=== PATIENT | female | born 1975 | race Caucasian/White ===

== ENCOUNTER → 2016-12-07 | Day surgery (SDC) | payer OTHER, BC ==
[2016-11-21 15:32] VITALS: Ht 160 cm; Wt 90.9 kg
[~2016-12-07] VITALS: Ht 160 cm; Wt 90.9 kg
[~2016-12-07] MED LIST: ATROPINE SULFATE 0.1 MG/ML 5ML SYR IV PRN; BUPIVACAINE/EPINEPHRINE 0.25% 1:200,000 30 ML VIAL ONE; CEFAZOLIN 2000 MG/60 ML D5W IV SCH; DEXAMETHASONE SOD INJ 4 MG/ML VIAL ONE; EpHEDrine SULFATE INJ 50 MG/ML AMP IV PRN; EpINEphrine INJ 1MG/ML AMP 1 MG/ML AMP ONE; FENTANYL CITRATE INJ 50 MCG/1 ML 2 ML VIAL IV PRN; FENTANYL CITRATE INJ 50 MCG/1 ML 2 ML VIAL ONE; HYDROmorphone INJ 1 MG/ML SYR IV PRN; KETO10TA PO; LABETALOL HCL IV 5 MG/ML 20ML IV PRN; LACTATED RINGER'S 1000ML 1,000 ML IV SCH; LIDOCAINE HCL 1% MPF 2 ML VIAL ONE; LIDOCAINE HCL 2% 2 ML VIAL (20MG/ML) ONE; MEPERIDINE HCL 25 MG/ML CARP IV PRN; MIDAZOLAM HCL 1 MG/ML 2ML VIAL ONE; ONDANSETRON INJ 2 MG/ML 2 ML VIAL IV PRN; ONDANSETRON INJ 2 MG/ML 2 ML VIAL ONE; OXYC-57 PO; OXYCODONE/ACETAMINOPHEN 5-325 TAB PO PRN; PROPOFOL IV EMULSION 10 MG/ML 20 ML VIAL IV ONE; ROPI1TAB PO; ROPIVACAINE 0.5% 5 MG/ML 30 ML VIAL ONE; SODIUM CHLORIDE 0.9% 1000ML 1,000 ML IV SCH
--- NOTE | 2016-12-07 09:04 | History & Physical Bridge - [place] ---
H&P Re-Evaluation Bridge Note: I have examined the patient, reviewed the History & Physical and in the interval since the performance of the History & Physical I have noted the following changes of clinical significance: No changes noted
--- NOTE | 2016-12-07 10:51 | [facility] Post Operative Brief Note ---
Immediate Operative Summary Operative Date Dec 07, 2016. Pre-Operative Diagnosis Left Shoulder Dislocation of AC Joint Post-Operative Diagnosis same Procedure(s) Performed Left Shoulder Arthroscopy, Subacromial Decompression Surgeon Dr Serna Gang Supervisor Pipe Lines Surgeon(s) STONEY Alvarez Estimated Blood Loss trace Findings as above Specimens none Complication(s) None Disposition Recovery Room / PACU
--- NOTE | 2016-12-07 10:59 | Discharge Instructions-SurgCtr ---
Discharge Instructions Visit Reason for Visit: Left Shoulder Dislocation Of Ac Joint Discharge Discharge Diagnosis / Problem: SAME ABOVE Discharge Goals Goal(s): Decrease discomfort, Improve function Medications Stopped Medications Name(s): Requip. Last dose 12/05/16 Restart Stopped Medication(s): MAY RESTART 12/07/2016 Activity Recommendations Activity Limitations: as noted below Lifting Limitations: gradually increase as tolerated Exercise/Sports Limitations: gradually increase as tolerated Shower/Bathe: may shower/bathe in 3 days Driving or Machine Use: WHEN OUT OF THE SLING AND OFF OF NARCOTICS Anesthesia . Post Anesthesia Instructions: If you have had General Anesthesia or IV Sedation: * Do not drive today. * Resume driving when surgeon permits. * Do not make important decisions or sign legal documents today. * Call surgeon for: 1. Temperature elevations greater than 101 degrees F. 2. Uncontrollable pain. 3. Excessive bleeding. 4. Persistent nausea and vomiting. 5. Medication intolerance (nausea, vomiting or rash). * For nausea and vomiting use only clear liquids such as: tea, soda, bouillon until nausea subsides, then gradually increase diet as tolerated. * If you have any concerns or questions, call your surgeon's office. If physician is unavailable and it is an emergency, call 911 or go to the nearest emergency room. . Instructions / Follow-Up Instructions / Follow-Up MEDICATIONS: * Resume previous medications unless instructed otherwise by your surgeon. * Always take pain medication on a full stomach or with food to avoid upset stomach. * Do not drink alcohol or drive while taking narcotics. * Ibuprofen or Tylenol may be taken if narcotic not needed. SPECIAL CARE INSTRUCTIONS: __ None _X_ Keep extremity elevated and iced x 48 hours; apply ice 20-30 minutes 8-10 times/day. May remove at night. _X_ Sling (WEAR NEEDED FOR COMFORT) __24 hrs/day __ Remove at night __ Shoulder Immobilizer __ 24 hrs/day __ Remove at night _X_ Dressing __ Maintain until seen in office, may shower with plastic over site _X_ Remove dressings in 24-48 hours and then may shower _X_ Cover incisions with band-aids after showering __ Do not remove steri-strips Call physician if chills or temperature rises above 102 degrees or pain unrelieved by prescribed pain medications at . . Diet Recommendations Home Diet: no limitations Fluid Restriction: None Procedures Procedures Performed: Left Shoulder Arthroscopy, Subacromial Decompression Pending Studies Studies pending at discharge: no Work Instructions Return To Work: after follow-up Lifting Limitations: NO LIFTING WITH LEFT ARM Medical Emergencies . Who to Call and When: Medical Emergencies: If at any time you feel your situation is an emergency, please call 911 immediately. . Non-Emergent Contact Non-Emergency issues call your: Primary Care Provider Call Non-Emergent contact if: you have a fever, temperature is above 101.5 . . "Provider Documentation" section prepared by Charles Ng.
--- NOTE | 2016-12-07 11:31 | OPERATIVE REPORT ---
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 POSTOPERATIVE DIAGNOSIS: Same. PROCEDURE: Left shoulder diagnostic arthroscopy with limited debridement, distal clavicle resection, and acromioplasty. SURGEON: Dr. Juan José Serna. PRINCIPAL ARCHAEOLOGIST: Alessandro Ng PA-C, whose assistance was necessary for positioning the arm and help with instrumentation. ANESTHESIA: General with a left interscalene nerve block. COMPLICATIONS: None. CONDITION: Stable to PACU. INDICATIONS: Sarah is a pleasant 41-year-old female who works as a COLLECTION SUPERVISOR at [employer]. She injured her shoulder back on August 10. MRI and clinical examination were diagnostic for subacromial bursitis and AC joint arthritis. After failing extensive conservative treatment, she elected to undergo arthroscopy. OPERATION AND FINDINGS: PROCEDURE: On 12/07/2016, she arrived at [facility] for the above procedure. She was seen in the preoperative holding area and the operative extremity was identified and signed. She was given a preoperative antibiotic and a left interscalene nerve block. She was taken back to the operating room, laid on the table in supine position and put under general anesthesia. She was then put into the beachchair position. The left shoulder was prepped and draped in sterile fashion. A time-out was done and the patient and operative extremity was properly identified. A scope was introduced in the posterior portal. Diagnostic arthroscopy showed no cartilage damage to the humeral head or the glenoid. The biceps tendon was intact and went through a normal size biceps tommy mechanism. There were no superior labral tears. An anterior portal was made. A shaver was used to do a limited debridement of the intraarticular structures. The scope was then put into the subacromial space. A lateral portal was made and a shaver was used to do a complete subacromial and subdeltoid bursectomy of very red and inflamed bursitis. The coracoacromial ligament was teased off the undersurface of the acromion and a 5-0 carlton was used to complete an acromioplasty of a Bigliani type 2 acromion. A shaver was used to remove any excess debris. The bursal side of the rotator cuff was examined extensively without evidence of tear. Attention was turned to the distal clavicle. Through the anterior portal, a shaver and ablator were used to skeletonize the distal clavicle. A 5-0 carlton was then used to resect the distal 7 mm from the clavicle. Complete resection was checked under direct visualization. A shaver was used to remove any excess debris. No additional pathology was identified. Arthroscopic instruments were removed from the shoulder. Portal sites were closed with 3-0 nylon. She was then placed in a soft dressing and regular arm sling. She was then extubated, transferred to a litter and taken to the postanesthesia care unit in stable condition. She tolerated the procedure well. I attest to the content of the Intraoperative Record and any orders documented therein. Any exceptio ns are noted below.
[2016-12-07 11:40] VITALS: TEMP 36.4
[2016-12-07 12:03] VITALS: BP 133/82; PULSE 65; O2SAT 100
--- NOTE | 2016-12-07 12:13 | Anesthesia Progress Nt - [facility] ---
Anesthesia Post Op Note Date & Time Dec 07, 2016 at 12:13 Vital Signs Pain Intensity: 0 Vital Signs Past 12 Hours Date Time Temp Pulse Resp B/P Pulse Ox O2 Delivery O2 Flow Rate FiO2 12/07/16 12:03 65 16 133/82 100 Room Air 12/07/16 11:40 36.4 62 16 138/82 100 Room Air 12/07/16 11:32 36.5 12/07/16 11:30 138/88 12/07/16 11:28 66 21 95 12/07/16 11:28 65 21 12/07/16 11:25 128/86 12/07/16 11:23 57 15 95 12/07/16 11:23 57 15 12/07/16 11:22 Room Air 12/07/16 10:55 36.4 66 16 117/79 100 Diffusion Mask 6 12/07/16 09:55 101/65 12/07/16 09:51 68 14 99 12/07/16 09:51 69 12/07/16 09:50 66 14 124/78 100 12/07/16 09:50 67 12/07/16 09:49 128/77 12/07/16 09:45 67 0 99 12/07/16 09:45 68 12/07/16 09:40 70 12/07/16 09:40 69 0 97 12/07/16 09:35 69 12/07/16 09:35 69 0 97 12/07/16 09:14 36.8 84 18 154/91 97 Room Air Notes Mental Status: alert / awake / arousable, participated in evaluation Pt Amnestic to Procedure: Yes Nausea / Vomiting: adequately controlled Pain: adequately controlled Airway Patency, RR, SpO2: stable & adequate BP & HR: stable & adequate Hydration State: stable & adequate Anesthetic Complications: no major complications apparent
== END | disposition home or self-care (01) ==
LOC: X.SURG 09:05
PROVIDERS: ATTEND Orthopaedic Surgery
DX: M75.42 Impingement syndrome of left shoulder (principal); M19.012 Primary osteoarthritis, left shoulder; G25.81 Restless legs syndrome

== ENCOUNTER 2020-07-01 19:59 | Observation (INO) ==
[2020-07-01] MEDS ORDERED: SODIUM CHLORIDE 0.9% 1000ML 1,000 ML IV ONE (20:30)
[2020-07-01] MEDS ORDERED: ASPIRIN CHEW 324 MG PO STA (20:36)
[2020-07-01] MEDS ORDERED: NITROGLYCERIN SL 0.4 MG/TAB TAB SL STA (20:36)
[2020-07-01] MEDS ORDERED: SODIUM CHLORIDE 0.9% 500 ML IV ONE (20:42)
[2020-07-01 21:05] LABS: Basophils # (auto) 0.05 K/uL (0-0.2); Basophils % (auto) 0.4 %; Eosinophils # (auto) 0.28 K/uL (0-0.5); Eosinophils % (auto) 2.4 %; Hematocrit (blood only) 42.2 % (37-47); Hemoglobin 14.2 g/dL (12.0-16.0); Immature Granulocytes # (auto) 0.02 K/uL (0.00-0.02); Immature Granulocytes % (auto) 0.2 %; Lymphocytes # (auto) 4.07 K/uL (1.2-3.4); Lymphocytes % (auto) 35.5 %; Mean Corpuscular Hemoglobin 31.9 pg (25-34); Mean Corpuscular Hgb Conc 33.6 g/dL (32-36); Mean Corpuscular Volume 94.8 fL (80-100); Mean Platelet Volume 11.4 fL (7.4-10.4); Monocytes # (auto) 0.77 K/uL (0.11-0.59); Monocytes % (auto) 6.7 %; Neutrophils # (auto) 6.27 K/uL (1.4-6.5); Neutrophils % (auto) 54.8 %; Platelet Count 284 K/uL (130-400); RDW Standard Deviation 45.1 fL (36.4-46.3); Red Blood Count 4.45 M/uL (4.2-5.4); White Blood Count 11.46 K/uL (4.8-10.8)
[2020-07-01 21:17] LABS: Partial Thromboplastin Ratio 0.9; Prothrombin Time 10.2 Seconds (9.0-12.0)
[2020-07-01 21:23] LABS: Pregnancy Test, Serum Negative (Negative)
[2020-07-01 21:24] LABS: Alanine Aminotransferase 62 U/L (12-78); Albumin Level 3.6 gm/dl (3.4-5.0); Aspartate Aminotransferase 26 U/L (15-37); BUN Creatinine Ratio 10.2 (10-20); Bilirubin Direct < 0.1 mg/dl (0-0.2); Blood Urea Nitrogen 9 mg/dl (7-18); Calcium 9.3 mg/dl (8.5-10.1); Carbon Dioxide 28 mmol/L (21-32); Chloride 105 mmol/L (98-107); Creatinine Clr Calc Pharmacy 94.4 ml/min; Est GFR (Non-African American) 79.4; Glucose 86 mg/dl (70-99); Lipase 86 U/L (73-393); Magnesium 2.1 mg/dl (1.8-2.4); Potassium 3.6 mmol/L (3.5-5.1); Sodium 139 mmol/L (136-145)
[2020-07-01 21:33] LABS: Albumin Globulin Ratio 0.9 (0.9-2); Alkaline Phosphatase 73 U/L (45-117); Bilirubin,Total 0.2 mg/dl (0.2-1); Globulin 3.9 gm/dl (2.5-4.0); NT Pro B Type Natriuretic Pept 15 pg/ml (0-450); Phosphorus 2.5 mg/dl (2.5-4.9); Total Protein 7.5 gm/dl (6.4-8.2); Troponin I < 0.015 ng/ml (0-0.045)
[2020-07-01] MEDS ORDERED: OPTIRAY 320 125ml IV ONE (22:16)
--- NOTE | 2020-07-01 23:15 | Emergency Department Note ---
Impression & Plan Exertional chest pain, Dizziness, Elevated blood pressure reading without diagnosis of hypertension ED Provider Note NAME: ANNE GILLIAM AGE: 45 SEX: F ARRIVES VIA: Walk-In INFORMANT: Patient, ED PROVIDER(S): Tariq Sargent MD CHIEF COMPLAINT: Chest pain, dizziness PLAN: Disposition: Admit MEDICAL DECISION MAKING: The patient is a pleasant 45-year-old woman with a past medical history of anxiety and restless leg syndrome who presents emergency department with complaints of intermittent chest pain with exertion that is been ongoing for the past week with associated lightheadedness and nausea and intermittent episodes that occur with rest. She reports her most recent episode was today which began around 4 PM and has been somewhat constant. She admits to eating prior to the onset of symptoms but reports other times is unrelated to eating. She reports she is aware that her father has a heart condition that they were told was "genetic". She denies any recent fevers, chills, cough, congestion, diarrhea, urinary symptoms. On arrival patient is anxious appearing but no acute distress, afebrile stable vital signs. She appears clinically dry. Exam is otherwise unremarkable. EKG without overt acute ischemia. Chest x-ray negative for acute process per my review. WBC 11.4, nonspecific. H/H and platelets within normal limits. Chemistry without acidosis. Electrolytes LFTs unremarkable. Troponin negative/undetectable. BNP within normal limits. CT of the chest was negative for PE, infiltrates or acute aortic pathology per preliminary stat read report. Upon reevaluation the patient did report resolution of symptoms after aspirin and nitroglycerin. Given this and in the setting of the patient's report of exertional symptoms with her reported family history reasonable to admit the patient for further cardiac evaluation. Heart score 4, moderate risk. Patient and are agreeable with this plan. Case was discussed with Dr. Ibarra, [facility] hospitalist, who will evaluate the patient for admission. Triage Nursing notes reviewed and agree them. Prior medical records reviewed Vital Signs: reviewed and remarkable for no significant abnormalities Differential diagnosis: Cardiac ischemia, aortic dissection, pulmonary embolism, pneumothorax, pneumonia, pericarditis, myocarditis, esophageal rupture, GERD, cholecystitis, pancreatitis, musculoskeletal, as well as other pathologies. ER treatment provided: See below. Diagnostics interpreted by me: ECG: Normal sinus rhythm, 62 bpm, no ectopy, no overt ST elevation or depression, QTC 424, QRS 84. Cardiac Monitoring: An order for continuous cardiac monitoring was placed and demonstrated normal sinus rhythm, 62 bpm, no ectopy. Laboratory studies: See below Imaging studies: CXR: Negative for acute cardiopulmonary process per my preliminary review. Preliminary Findings Only See Final Report For Complete Findings CTA CHEST: No pulmonary embolus. No effusion or consolidation. Radiologist: Nell Moe M.D. Study ready at 22:29 and initial results transmitted at 22:42 Consultation(s): Case was discussed with Dr. Ibarra, [facility] hospitalist, who will evaluate the patient for admission. HPI: The patient is a pleasant 45-year-old woman with a past medical history of anxiety and restless leg syndrome who presents emergency department with complaints of intermittent chest pain with exertion that is been ongoing for the past week with associated lightheadedness and nausea and intermittent episodes that occur with rest. She reports her most recent episode was today which began around 4 PM and has been somewhat constant. She admits to eating prior to the onset of symptoms but reports other times is unrelated to eating. She reports she is aware that her father has a heart condition that they were told was "genetic". She denies any recent fevers, chills, cough, congestion, diarrhea, urinary symptoms. ROS: See above HPI for pertinent positives & negatives. A total of 10 systems reviewed and were otherwise negative. PAST MEDICAL HISTORY:See Below PAST SURGICAL HISTORY:See Below FAMILY HISTORY:See Below SOCIAL HISTORY:See Below HOME MEDICATIONS:See Below ALLERGIES:See Below VITALS:See Below PHYSICAL EXAMINATION: GENERAL: Awake, alert, fatigued-appearing, in no distress HENT: Normocephalic, atraumatic. Oropharynx with dry mucous membranes and otherwise unremarkable. EYES: Normal conjunctiva. Sclera non-icteric. NECK: Supple. No nuchal rigidity. FROM. No JVD. RESPIRATORY: Clear to auscultation. CARDIAC: Regular rate, normal rhythm. Extremities warm and well perfused. Pulses equal. ABDOMEN: Soft, non-distended. No tenderness to palpation. No rebound or guarding. No masses. RECTAL: Deferred. MUSCULOSKELETAL: Chest examination reveals no tenderness. The back is symmetrical on inspection without obvious abnormality. There is no CVA tenderness to palpation. No joint edema. LOWER EXTREMITIES: Calves are equal size bilaterally and non-tender. No edema. No discoloration. NEURO: Normal sensorium. No sensory or motor deficits noted. SKIN: No rash or jaundice noted. Tariq Sargent MD Past Med/Surg History Medical History Anxiety Otitis media of both ears Restless leg syndrome Family History Other No pertinent family history Social History Smoking Status: Former smoker Tobacco Type: Cigarettes Smoking End Date: May 2020; Hx Alcohol Use: No Hx Substance Use: No Preferred Language: Tamazight Communication Ability: Effective Beliefs That Will Affect Care: None marital status: Current Living Situation: Spouse current occupational status: employed Other Information That Helps Us Care for You: No Feels Safe at Home: Yes Safety Concerns: Feels Safe At This Time Assistive Devices: Glasses Allergies Allergies Allergy/AdvReac Type Severity Reaction Status Date / Time No Known Allergies Allergy Unknown Verified 07/01/20 21:50 Home Meds Home Medications Medication Instructions Recorded Confirmed citalopram [Celexa] 40 mg PO QAM 07/06/18 07/01/20 pramipexole [Mirapex] 0.125 mg PO HS 07/06/18 07/01/20 Results & Data (ED) Vital Signs Vital Signs - 24 hr 07/01/20 20:00 07/01/20 20:02 07/01/20 20:55 Temperature 36.9 C Temperature Source Oral Pulse Rate 72 Respiratory Rate 16 Respiratory Effort / Characteristics Non-Labored Spontaneous Respiratory Depth Normal Blood Pressure 157/82 H Blood Pressure [Right Arm] Blood Pressure Mean 107 Blood Pressure Mean [Right Arm] Pulse Oximetry 95 97 Oxygen Delivery Method Room Air Room Air Room Air Sepsis Recent Fever Within 48 Hours No Sepsis New/Unexplained Change in Mental Status No Sepsis Action Taken by Nursing No Action Required 07/01/20 22:00 07/02/20 00:00 Temperature Temperature Source Pulse Rate Respiratory Rate Respiratory Effort / Characteristics Respiratory Depth Blood Pressure Blood Pressure [Right Arm] 165/114 H 156/89 H Blood Pressure Mean Blood Pressure Mean [Right Arm] 131 111 Pulse Oximetry Oxygen Delivery Method Sepsis Recent Fever Within 48 Hours Sepsis New/Unexplained Change in Mental Status Sepsis Action Taken by Nursing Laboratory Data Attestation: I reviewed the patient's lab results. Result diagrams: 07/01/20 20:30 07/01/20 20:30 Lab Results 07/01/20 07/01/20 07/01/20 Range/Units 20:30 20:30 20:30 WBC 11.46 H (4.8-10.8) K/uL RBC 4.45 (4.2-5.4) M/uL Hgb 14.2 (12.0-16.0) g/dL Hct 42.2 (37-47) % MCV 94.8 (80-100) fL MCH 31.9 (25-34) pg MCHC 33.6 (32-36) g/dL RDW Std Deviation 45.1 (36.4-46.3) fL RDW Coeff of Josefina 13.0 (11.5-14.5) % Plt Count 284 (130-400) K/uL MPV 11.4 H (7.4-10.4) fL Immature Gran % (Auto) 0.2 % Neut % (Auto) 54.8 % Lymph % (Auto) 35.5 % Dougherty % (Auto) 6.7 % Eos % (Auto) 2.4 % Baso % (Auto) 0.4 % Neut # (Auto) 6.27 (1.4-6.5) K/uL Lymph # (Auto) 4.07 H (1.2-3.4) K/uL Dougherty # (Auto) 0.77 H (0.11-0.59) K/uL Eos # (Auto) 0.28 (0-0.5) K/uL Baso # (Auto) 0.05 (0-0.2) K/uL Immature Gran # (Auto) 0.02 (0.00-0.02) K/uL PT 10.2 (9.0-12.0) Seconds INR 1.0 (0.9-1.1) APTT 24.0 (21.0-31.0) Seconds PTT Ratio 0.9 Sodium 139 (136-145) mmol/L Potassium 3.6 (3.5-5.1) mmol/L Chloride 105 (98-107) mmol/L Carbon Dioxide 28 (21-32) mmol/L Anion Gap 5.0 (3-11) BUN 9 (7-18) mg/dl Creatinine 0.89 (0.6-1.2) mg/dl Est Cr Clr Drug Dosing 94.4 ml/min Est GFR ( Amer) 92.0 Est GFR (Non-Af Amer) 79.4 BUN/Creatinine Ratio 10.2 (10-20) Glucose 86 (70-99) mg/dl Calcium 9.3 (8.5-10.1) mg/dl Phosphorus 2.5 (2.5-4.9) mg/dl Magnesium 2.1 (1.8-2.4) mg/dl Total Bilirubin 0.2 (0.2-1) mg/dl Direct Bilirubin < 0.1 (0-0.2) mg/dl AST 26 (15-37) U/L ALT 62 (12-78) U/L Alkaline Phosphatase 73 (45-117) U/L Troponin I < 0.015 (0-0.045) ng/ml NT-Pro-B Natriuret Pep 15 (0-450) pg/ml Total Protein 7.5 (6.4-8.2) gm/dl Albumin 3.6 (3.4-5.0) gm/dl Globulin 3.9 (2.5-4.0) gm/dl Albumin/Globulin Ratio 0.9 (0.9-2) Lipase 86 (73-393) U/L TSH 2.100 (0.300-4.500) uIu/ml HCG, Qual (Negative) 07/01/20 Range/Units 20:30 WBC (4.8-10.8) K/uL RBC (4.2-5.4) M/uL Hgb (12.0-16.0) g/dL Hct (37-47) % MCV (80-100) fL MCH (25-34) pg MCHC (32-36) g/dL RDW Std Deviation (36.4-46.3) fL RDW Coeff of Josefina (11.5-14.5) % Plt Count (130-400) K/uL MPV (7.4-10.4) fL Immature Gran % (Auto) % Neut % (Auto) % Lymph % (Auto) % Dougherty % (Auto) % Eos % (Auto) % Baso % (Auto) % Neut # (Auto) (1.4-6.5) K/uL Lymph # (Auto) (1.2-3.4) K/uL Dougherty # (Auto) (0.11-0.59) K/uL Eos # (Auto) (0-0.5) K/uL Baso # (Auto) (0-0.2) K/uL Immature Gran # (Auto) (0.00-0.02) K/uL PT (9.0-12.0) Seconds INR (0.9-1.1) APTT (21.0-31.0) Seconds PTT Ratio Sodium (136-145) mmol/L Potassium (3.5-5.1) mmol/L Chloride (98-107) mmol/L Carbon Dioxide (21-32) mmol/L Anion Gap (3-11) BUN (7-18) mg/dl Creatinine (0.6-1.2) mg/dl Est Cr Clr Drug Dosing ml/min Est GFR ( Amer) Est GFR (Non-Af Amer) BUN/Creatinine Ratio (10-20) Glucose (70-99) mg/dl Calcium (8.5-10.1) mg/dl Phosphorus (2.5-4.9) mg/dl Magnesium (1.8-2.4) mg/dl Total Bilirubin (0.2-1) mg/dl Direct Bilirubin (0-0.2) mg/dl AST (15-37) U/L ALT (12-78) U/L Alkaline Phosphatase (45-117) U/L Troponin I (0-0.045) ng/ml NT-Pro-B Natriuret Pep (0-450) pg/ml Total Protein (6.4-8.2) gm/dl Albumin (3.4-5.0) gm/dl Globulin (2.5-4.0) gm/dl Albumin/Globulin Ratio (0.9-2) Lipase (73-393) U/L TSH (0.300-4.500) uIu/ml HCG, Qual Negative (Negative) Administered Medications Discontinued Medications Aspirin (Aspirin Chew 324 Mg) 324 mg PO NOW STA Stop: 07/01/20 20:37 Last Admin: 07/01/20 21:02 Dose: 324 mg Documented by: [id number] Sodium Chloride (Nss 1000ml) 1,000 mls @ 999 mls/hr IV .Q1H1M ONE Stop: 07/01/20 21:30 Last Infusion: 07/01/20 22:00 Dose: 0 mls/hr Documented by: [id number] Admin: 07/01/20 20:56 Dose: 999 mls/hr Documented by: [id number] Sodium Chloride (Nss) 500 mls @ 999 mls/hr IV .Q31M ONE Stop: 07/01/20 21:12 Last Infusion: 07/01/20 21:40 Dose: 0 mls/hr Documented by: [id number] Admin: 07/01/20 21:03 Dose: 999 mls/hr Documented by: [id number] Ioversol (Optiray 320 125ml) 102 ml IV ONCE ONE Stop: 07/01/20 22:17 Last Admin: 07/01/20 22:16 Dose: 102 ml Documented by: [id number] Nitroglycerin (Nitroglycerin Sl 0.4 Mg/Tab Tab) 0.4 mg SL NOW STA Stop: 07/01/20 20:37 Last Admin: 07/01/20 21:02 Dose: 0.4 mg Documented by: [id number] Blood Pressure Blood Pressure Findings: Elevated blood pressure Blood Pressure Disposition: further management by hospitalist Discharge Plan Visit Data Chief Complaint: Chest Pain Stated Complaint: CHEST PAIN,LIGHTHEAD,SOB ED Provider: Tariq Sargent Discharge Problem: Exertional chest pain, Dizziness, Elevated blood pressure reading without diagnosis of hypertension Patient Disposition: Admitted As Inpatient Discharge Instructions Interventions: ED Discharge Assessment Last Done: 07/02/20 01:30
--- NOTE | 2020-07-02 00:06 | History & Physical Report ---
Date of Service July 02, 2020 Assessment & Plan (1) Chest pain: Relieved by nitroglycerin Rule out ACS Hypertension possible chronic BP elevation given LVH on outpatient TTE 2016 (outpatient work- up given family history of HOCM) Snoring with apneic episodes as per account Possible sleep disordered breathing Past tobacco abuse OBS PCU Aspirin for CAD prevention until ACS ruled out Follow troponin Cardiology consult RE chest pain Outpatient sleep study DVT prophylaxis. Lovenox subcu Full code Patient's requesting updates providers. Mr. Jose Mathur, contact #[phone]. Text document was generated using [employer] voice recognition software. It may contain grammatical or spelling errors. Kindly contact undersigned for clarification of any documentation item in question. History of Present Illness Chief Complaint: Chest pain Primary Care Provider: Dr. Goldman History obtained from patient, family, and records. Medical history significant for anxiety/mood disorder, past tobacco abuse. One week history of intermittent substernal achy chest discomfort with radiation to the back associated with lightheadedness, nausea, sensation that she is about to pass out. Symptoms somewhat worse with exertion. No cough symptoms. No headache symptoms. SBP 140s at home which is higher than usual. Some personal stressors. Chest discomfort relieved with aspirin and nitroglycerin administration by EMS. Medical History as above Surgical History : Shoulder surgery, endometrial ablation Family History : HOCM, CAD, diabetes, Personal/Social history : Past tobacco abuse, occasional alcohol intake, restaurant employee Allergies Allergy/AdvReac Type Severity Reaction Status Date / Time No Known Allergies Allergy Unknown Verified 07/01/20 21:50 Home Medications Home Medications Medication Instructions Recorded Confirmed Type citalopram [Celexa] 40 mg PO QAM 07/06/18 07/01/20 History pramipexole [Mirapex] 0.125 mg PO HS 07/06/18 07/01/20 History Past Med/Surg History Medical History Anxiety Otitis media of both ears Restless leg syndrome Family History Other No pertinent family history Social History Smoking Status: Former smoker Tobacco Type: Cigarettes Smoking End Date: May 2020; Hx Alcohol Use: No Hx Substance Use: No Preferred Language: Guamanian Communication Ability: Effective Beliefs That Will Affect Care: None marital status: Current Living Situation: Spouse current occupational status: employed Other Information That Helps Us Care for You: No Feels Safe at Home: Yes Safety Concerns: Feels Safe At This Time Assistive Devices: Glasses Review of Systems Review of Systems: As per HPI, all 10 systems reviewed, snoring during sleep with apneic episodes as per account, all other ROS negative Physical Exam Physical Exam: GENERAL: Comfortable, slightly anxious, pleasant, morbidly obese, no respiratory distress SKIN: Normal color, warm HEENT: Bespectacled, pink palpebral conjunctivae, no ptosis, moist buccal mucosa NECK : Supple, no tenderness CHEST : CTA, no tenderness HEART : RRR, systolic murmur ABDOMEN: Some distention, nontender EXTREMITIES : No LE swelling/tenderness, no other conspicuous deformities noted NEUROLOGIC : Coherent, no facial asymmetry, no other gross focality Results & Data Results & Data ([facility]) Vital Signs (Past 12 Hours) Vital Signs Temp Pulse Resp BP BP Pulse Ox 07/01/20 22:00 165/114 H 07/01/20 20:55 97 07/01/20 20:02 36.9 C 72 16 157/82 H 95 Laboratory Results Laboratory Results WBC 11.46 K/uL (4.8-10.8) H 07/01/20 20:30 RBC 4.45 M/uL (4.2-5.4) 07/01/20 20:30 Hgb 14.2 g/dL (12.0-16.0) 07/01/20 20:30 Hct 42.2 % (37-47) 07/01/20 20:30 MCV 94.8 fL (80-100) 07/01/20 20:30 MCH 31.9 pg (25-34) 07/01/20 20:30 MCHC 33.6 g/dL (32-36) 07/01/20 20:30 RDW Std Deviation 45.1 fL (36.4-46.3) 07/01/20 20:30 RDW Coeff of Josefina 13.0 % (11.5-14.5) 07/01/20 20:30 Plt Count 284 K/uL (130-400) 07/01/20 20:30 MPV 11.4 fL (7.4-10.4) H 07/01/20 20:30 Immature Gran % (Auto) 0.2 % 07/01/20 20:30 Neut % (Auto) 54.8 % 07/01/20 20:30 Lymph % (Auto) 35.5 % 07/01/20 20:30 Bladen % (Auto) 6.7 % 07/01/20 20:30 Eos % (Auto) 2.4 % 07/01/20 20:30 Baso % (Auto) 0.4 % 07/01/20 20:30 Neut # (Auto) 6.27 K/uL (1.4-6.5) 07/01/20 20:30 Lymph # (Auto) 4.07 K/uL (1.2-3.4) H 07/01/20 20:30 Bladen # (Auto) 0.77 K/uL (0.11-0.59) H 07/01/20 20:30 Eos # (Auto) 0.28 K/uL (0-0.5) 07/01/20 20:30 Baso # (Auto) 0.05 K/uL (0-0.2) 07/01/20 20:30 Immature Gran # (Auto) 0.02 K/uL (0.00-0.02) 07/01/20 20:30 PT 10.2 Seconds (9.0-12.0) 07/01/20 20:30 INR 1.0 (0.9-1.1) 07/01/20 20:30 APTT 24.0 Seconds (21.0-31.0) 07/01/20 20:30 PTT Ratio 0.9 07/01/20 20:30 Sodium 139 mmol/L (136-145) 07/01/20 20:30 Potassium 3.6 mmol/L (3.5-5.1) 07/01/20 20:30 Chloride 105 mmol/L (98-107) 07/01/20 20:30 Carbon Dioxide 28 mmol/L (21-32) 07/01/20 20:30 Anion Gap 5.0 (3-11) 07/01/20 20:30 BUN 9 mg/dl (7-18) 07/01/20 20:30 Creatinine 0.89 mg/dl (0.6-1.2) 07/01/20 20:30 Est Cr Clr Drug Dosing 94.4 ml/min 07/01/20 20:30 Est GFR ( Amer) 92.0 07/01/20 20:30 Est GFR (Non-Af Amer) 79.4 07/01/20 20:30 BUN/Creatinine Ratio 10.2 (10-20) 07/01/20 20:30 Glucose 86 mg/dl (70-99) 07/01/20 20: Calcium 9.3 mg/dl (8.5-10.1) 07/01/20 20:30 Phosphorus 2.5 mg/dl (2.5-4.9) 07/01/20: Magnesium 2.1 mg/dl (1.8-2.4) 07/01/20 20:30 Total Bilirubin 0.2 mg/dl (0.2-1) 07/01/20 20:30 Direct Bilirubin < 0.1 mg/dl (0-0.2) 07/01/20 20:30 AST 26 U/L (15-37) 07/01/20 20:30 ALT 62 U/L (12-78) 07/01/20 20:30 Alkaline Phosphatase 73 U/L (45-117) 07/01/20 20:30 Troponin I < 0.015 ng/ml (0-0.045) 07/01/20 20: NT-Pro-B Natriuret Pep 15 pg/ml (0-450) 07/01/20 20:30 Total Protein 7.5 gm/dl (6.4-8.2) 07/01/20 20:30 Albumin 3.6 gm/dl (3.4-5.0) 07/01/20 20:30 Globulin 3.9 gm/dl (2.5-4.0) 07/01/20 20 Albumin/Globulin Ratio 0.9 (0.9-2) 07/01/20: Lipase 86 U/L (73-393) 07/01/20 20: TSH 2.100 uIu/ml (0.300-4.500) 07/01/20 20:30 HCG, Qual Negative (Negative) 07/01/20 20:[address] chest initial read: No pulmonary embolus. No effusion or consolidation. EKG as per my interpretation : Rate 60, NSR, normal axis, T wave abnormality septal leads
[2020-07-02] MEDS ORDERED: PROMETHAZINE HCL 12.5 MG in SODIUM CHLORIDE 0.9% 50 ML IV PRN (01:59)
[2020-07-02] MEDS ORDERED: TRAMADOL HCL 50 MG TABLET PO PRN (01:59)
[2020-07-02] MEDS ORDERED: LORazepam 0.5 MG/1 ML VIAL IV PRN (01:59)
[2020-07-02] MEDS ORDERED: ACETAMINOPHEN 325 MG TAB PO PRN (01:59)
[2020-07-02] MEDS ORDERED: NITROGLYCERIN SL 0.4 MG/TAB TAB SL PRN (01:59)
[2020-07-02] MEDS ORDERED: MoRPHine SULFATE 4 MG/ML 1 ML CARP\\VIAL IV PRN (01:59)
[2020-07-02] MEDS ORDERED: D5NSS + 20MEQ KCL 20 MEQ/1,000 ML BAG IV SCH (02:30)
[2020-07-02 05:10] LABS: Basophils # (auto) 0.05 K/uL (0-0.2); Basophils % (auto) 0.5 %; Eosinophils # (auto) 0.27 K/uL (0-0.5); Eosinophils % (auto) 2.5 %; Hematocrit (blood only) 40.5 % (37-47); Hemoglobin 13.2 g/dL (12.0-16.0); Immature Granulocytes # (auto) 0.04 K/uL (0.00-0.02); Immature Granulocytes % (auto) 0.4 %; Lymphocytes # (auto) 3.73 K/uL (1.2-3.4); Lymphocytes % (auto) 34.3 %; Mean Corpuscular Hemoglobin 30.9 pg (25-34); Mean Corpuscular Hgb Conc 32.6 g/dL (32-36); Mean Corpuscular Volume 94.8 fL (80-100); Mean Platelet Volume 11.5 fL (7.4-10.4); Monocytes # (auto) 0.64 K/uL (0.11-0.59); Monocytes % (auto) 5.9 %; Neutrophils # (auto) 6.13 K/uL (1.4-6.5); Neutrophils % (auto) 56.4 %; Platelet Count 249 K/uL (130-400); RDW Standard Deviation 45.1 fL (36.4-46.3); Red Blood Count 4.27 M/uL (4.2-5.4); White Blood Count 10.86 K/uL (4.8-10.8)
[2020-07-02 05:27] LABS: BUN Creatinine Ratio 10.4 (10-20); Blood Urea Nitrogen 8 mg/dl (7-18); Calcium 8.1 mg/dl (8.5-10.1); Carbon Dioxide 26 mmol/L (21-32); Chloride 110 mmol/L (98-107); Creatinine Clr Calc Pharmacy 108.3 ml/min; Est GFR (African American) 107.9; Est GFR (Non-African American) 93.1; Glucose 93 mg/dl (70-99); Potassium 3.7 mmol/L (3.5-5.1); Sodium 140 mmol/L (136-145)
[2020-07-02 05:32] LABS: Chol HDL Ratio 5; Cholesterol 192 mg/dl (0-200); HDL Cholesterol 38 mg/dl; LDL Cholesterol Calculated 132 mg/dl; Triglycerides 109 mg/dl (0-150); Troponin I < 0.015 ng/ml (0-0.045); VLDL Cholesterol 22 mg/dl
--- NOTE | 2020-07-02 07:31 | XRay Report ---
XR chest 1V portable HISTORY: Atypical Chest Pain COMPARISON: Chest 06/27/2019. FINDINGS: The lungs are clear. Cardiac silhouette is normal in size. No pleural effusions. No pneumot horax. IMPRESSION: No acute process. ACT 112: Negative or not required by law. Electronically signed by: Khadar Ross M.D. 07/02/2020 7:29 AM
--- NOTE | 2020-07-02 07:34 | CT Scan Report ---
CHEST CTA for PULMONARY ARTERIES CT DOSE: 787.98 mGy.cm HISTORY: Atypical chest pain. Assess for pulmonary embolus. TECHNIQUE: Multiaxial CT images of the chest were performed following the intravenous administration of contrast to evaluate the pulmonary arteries. Maximal intensity projection images were also obtaine d. A dose lowering technique was utilized adhering to the principles of ALARA. COMPARISON STUDY: None. FINDINGS: Normal caliber thoracic aorta with no evidence for dissection. The heart is normal in size. No pleural or pericardial effusions. No filling defects within the pulmonary arteries to suggest pul monary embolus. No mediastinal hilar lymphadenopathy. Normal esophagus. Limited views of the upper ab domen demonstrate a normal liver and spleen. No suspicious lytic or blastic osseous lesions. The cent ral airways are patent. No pneumothorax. The lungs are essentially clear. No focal lung consolidation s to suggest pneumonia. IMPRESSION: No evidence for pulmonary embolus. ACT 112: Negative or not required by law. Electronically signed by: Khadar Ross M.D. 07/02/2020 7:33 AM
[2020-07-02] MEDS ORDERED: CITALOPRAM 40 MG TAB PO SCH (09:00)
[2020-07-02] MEDS ORDERED: ASPIRIN 81 MG ECTAB PO SCH (09:00)
[2020-07-02] MEDS ORDERED: ENOXAPARIN INJ 40 MG/0.4 ML SYR SQ SCH (09:00)
--- NOTE | 2020-07-02 10:11 | Cardiology Consultation ---
Date of Consultation July 02, 2020 Assessment & Plan (1) Chest pain: Pain was reproducible with palpation but she does have concerning family history of cardiac disease. Troponin negative. Exercise stress test completed and nonischemic. Will refer to chiropractics as an outpatient for rib dysfunction. Present on Admission?: Yes (2) Elevated blood pressure reading without diagnosis of hypertension: Past medical history of elevated blood pressure. Noted to have blood pressures 130-160/70-100 range during this admission. Will start the patient on 25 mg Losartan and have the patient follow up with me in the cardiology office in 1 month. Present on Admission?: Yes (3) Diastolic dysfunction: Blood pressure control as above. (4) Aortic valve sclerosis: Would benefit from statin therapy to prevent disease progression will likely start at outpatient follow up History of Present Illness Attending Physician: Ace Houser MD History of Present Illness 45 year old female with past medical history of restless leg and elevated blood pressure seen in consultation today for chest pain that has been going on for 1 week. She reports that this has occurred twice prior to admission and is associated with "dizziness". The chest pain occurs in her mid sternum and is described as "stabbing and sharp" radiating through her back. The pain does feel better if she stretches out her back and reported that it feels like her back needs "cracked". She previously had and ECHO in 2016 for a family history of hypertrophic cardiomyopathy in her father and grandfather. Allergies Allergy/AdvReac Type Severity Reaction Status Date / Time No Known Allergies Allergy Unknown Verified 07/01/20 21:50 Home Medications Home Medications Medication Instructions Recorded Confirmed Type citalopram [Celexa] 40 mg PO QAM 07/06/18 07/01/20 History pramipexole [Mirapex] 0.125 mg PO HS 07/06/18 07/01/20 History losartan 25 mg PO QAM #30 tab 07/02/20 Rx Patient History Medical History (Updated 07/02/20 @ 16:33 by Horacio Gray DO) Anxiety Diastolic dysfunction Otitis media of both ears Restless leg syndrome Family History Other No pertinent family history Social History Smoking Status: Former smoker Tobacco Type: Cigarettes Smoking End Date: May 2020; Hx Alcohol Use: No Hx Substance Use: No Preferred Language: Taiwanese Communication Ability: Effective Beliefs That Will Affect Care: None marital status: Current Living Situation: Spouse current occupational status: employed Other Information That Helps Us Care for You: No Feels Safe at Home: Yes Safety Concerns: Feels Safe At This Time Assistive Devices: Glasses Review of Systems Constitutional: no fever, no chills, no fatigue and no weakness Respiratory: no cough and no dyspnea Cardiovascular: as per Subjective / HPI; no dyspnea at rest and no palpitations Neurologic: + dizziness and + syncope; no tingling and no numbness Physical Exam Constitutional: well developed and well nourished; no acute distress Neck: normal visual inspection and trachea midline Respiratory: normal respiratory effort, lungs clear to auscultation normal respiratory effort Cardiovascular: RRR, no murmur, no edema Vessels: normal peripheral pulses; no carotid bruit Extremities: normal capillary refill; no edema Chest (Breasts): Additional Comments: Tenderness to palpation noted over the midsternum with reproduction of chest pain. Slight depression noted at this location as well. Gastrointestinal (Abdomen): Inspection/Auscultation: abdomen normal to inspection and normal bowel sounds Percussion/Palpation: abdomen nontender Skin: no rashes, warm and dry normal turgor Psychiatric: A+Ox3, euthymic affect Results & Data ([facility]) Vital Signs (Past 12 Hours) Vital Signs Temp Pulse Pulse Resp BP BP BP 07/02/20 08:04 36.7 C 61 18 130/77 07/02/20 04:31 36.8 C 67 16 108/67 07/02/20 01:30 72 16 151/79 H 07/02/20 01:25 36.9 C 68 18 168/87 H 07/02/20 00:00 156/89 H Pulse Ox 07/02/20 08:04 98 07/02/20 04:31 97 07/02/20 01:30 98 07/02/20 01:25 97 07/02/20 00:00
[2020-07-02] MEDS ORDERED: LOSARTAN POTASSIUM 25 MG TAB PO SCH (13:00)
[2020-07-02] MEDS ORDERED: PRAMIPEXOLE DIHYDROCHLO 0.25 MG TAB PO SCH (21:00)
--- NOTE | 2020-07-03 09:39 | Electrocardiogram Report ---
Test Reason : Blood Pressure : / mmHG Vent. Rate : 062 BPM Atrial Rate : 062 BPM P-R Int : 160 ms QRS Dur : 084 ms QT Int : 418 ms P-R-T Axes : 022 031 032 degrees QTc Int : 424 ms Normal sinus rhythm Normal ECG When compared with ECG of 05-NOV-2013 08:46, No significant change was found Confirmed by Lars Urena ([id number]) on 07/03/2020 9:38:59 AM Referred By: REFERRED SELF Confirmed By:Lars Urena
--- NOTE | 2020-07-08 11:27 | Hospitalist Progress Note ---
Date of Service delayed entry date of service 07/02/20 July 08, 2020 Assessment & Plan (1) Chest pain: Chest Pain, Acute Coronary Syndrome Ruled Out Troponins Negative EKG no signs of acute ischemia or infarct Exercise Stress Test: Non-ischemia evaluated by Technical Sales Representative Dr. Gray--> no further interventions at this time Will refer to chiropractics as an outpatient for rib dysfunction. Elevated blood pressure reading without diagnosis of hypertension: per Technical Sales Representative: Past medical history of elevated blood pressure. Noted to have blood pressures 130-160/70-100 range during this admission. Will start the patient on 25 mg Losartan and have the patient follow up with me in the cardiology office in 1 month. Diastolic dysfunction: Blood pressure control as above. Aortic valve sclerosis: per Technical Sales Representative: Would benefit from statin therapy to prevent disease progression will likely start at outpatient follow up Snoring with apneic episodes as per account Possible sleep disordered breathing outpatient Sleep Study Past tobacco abuse Disposition d/c home ff up with PCP in 1 week per DC instructions ff up with Technical Sales Representative in 1 month plan of care discussed with patient in detail and at length all questions were answered she is understanding, agreeable, comfortable with plan of care Admission and Anticipated Discharge Date Admission Date: July 02, 2020 Subjective ff up for chest pain seen resting in bed, comfortable at bedside in good spirits states she feels better overall no recurrence of chest pain while admitted no dyspnea, palpitations, dizziness no other symptoms Review of Systems Review of Systems: All systems reviewed & are unremarkable except as noted in Subjective Physical Exam Physical Exam: General- oriented x 3, not in distress, speaks in sentences with no effort or accessory muscle use Head- atraumatic Eyes- PERRL, EOMI, anicteric ENT- oropharynx clear Neck- supple, no JVD, no adenopathy, no thyromegaly; carotids +2/2, no bruits appreciated Lungs- clear to auscultation bilaterally, no rales/wheezes Heart- normal rate, regular rhythm; no murmur, no gallop, no rub appreciated Abdomen- normal bowel sounds, nondistended, soft, nontender, no masses or hepatosplenomegaly Extremities- no pretibial edema, no calf tenderness; peripheral pulses intact Neuro- alert, oriented x 3; CN 2-12 grossly intact; motor 5/5 bilaterally;sensation 100% on all extremities; no other gross focal neurologic deficits Skin- warm & dry Results & Data Results & Data ([facility]) Laboratory Results all noted and reviewed
--- NOTE | 2020-07-08 11:34 | Discharge Summary ---
Date of Service July 08, 2020 Admission HPI Per Admitting Provider History obtained from patient, family, and records. Medical history significant for anxiety/mood disorder, past tobacco abuse. One week history of intermittent substernal achy chest discomfort with radiation to the back associated with lightheadedness, nausea, sensation that she is about to pass out. Symptoms somewhat worse with exertion. No cough symptoms. No headache symptoms. SBP 140s at home which is higher than usual. Some personal stressors. Chest discomfort relieved with aspirin and nitroglycerin administration by EMS. Medical History as above Surgical History : Shoulder surgery, endometrial ablation Family History : HOCM, CAD, diabetes, Personal/Social history : Past tobacco abuse, occasional alcohol intake, restaurant employee Admission Exam Per Admitting Provider GENERAL: Comfortable, slightly anxious, pleasant, morbidly obese, no respiratory distress SKIN: Normal color, warm HEENT: Bespectacled, pink palpebral conjunctivae, no ptosis, moist buccal mucosa NECK : Supple, no tenderness CHEST : CTA, no tenderness HEART : RRR, systolic murmur ABDOMEN: Some distention, nontender EXTREMITIES : No LE swelling/tenderness, no other conspicuous deformities noted NEUROLOGIC : Coherent, no facial asymmetry, no other gross focality Principal Diagnosis Chest Pain Acute Coronary Syndrome Ruled out Discharge Exam General- oriented x 3, not in distress, speaks in sentences with no effort or accessory muscle use Head- atraumatic Eyes- PERRL, EOMI, anicteric ENT- oropharynx clear Neck- supple, no JVD, no adenopathy, no thyromegaly; carotids +2/2, no bruits appreciated Lungs- clear to auscultation bilaterally, no rales/wheezes Heart- normal rate, regular rhythm; no murmur, no gallop, no rub appreciated Abdomen- normal bowel sounds, nondistended, soft, nontender, no masses or hepatosplenomegaly Extremities- no pretibial edema, no calf tenderness; peripheral pulses intact Neuro- alert, oriented x 3; CN 2-12 grossly intact; motor 5/5 bilaterally;sensation 100% on all extremities; no other gross focal neurologic deficits Skin- warm & dry Discharge Data Allergies Allergy/AdvReac Type Severity Reaction Status Date / Time No Known Allergies Allergy Unknown Verified 07/01/20 21:50 Consultations 07/01/20 23:20 ED Decision to Admit Stat 07/02/20 01:59 Consult Cardiology Routine Ordered Studies 07/01/20 20:37 CT angio chest PE protocol Urgent COMPARISON STUDY: None. FINDINGS: Normal caliber thoracic aorta with no evidence for dissection. The heart is normal in size. No pleural or pericardial effusions. No filling defects within the pulmonary arteries to suggest pulmonary embolus. No mediastinal hilar lymphadenopathy. Normal esophagus. Limited views of the upper abdomen demonstrate a normal liver and spleen. No suspicious lytic or blastic osseous lesions. The central airways are patent. No pneumothorax. The lungs are essentially clear. No focal lung consolidations to suggest pneumonia. IMPRESSION: No evidence for pulmonary embolus. Hospital Course (1) Chest pain: Chest Pain, Acute Coronary Syndrome Ruled Out Troponins Negative EKG no signs of acute ischemia or infarct Exercise Stress Test: Non-ischemia CT angio chest: no Pulmonary Embolism evaluated by Site Damage Prevention Technician Dr. Gray--> no further interventions at this time Will refer to chiropractics as an outpatient for rib dysfunction. Elevated blood pressure reading without diagnosis of hypertension: per Site Damage Prevention Technician: Past medical history of elevated blood pressure. Noted to have blood pressures 130-160/70-100 range during this admission. Will start the patient on 25 mg Losartan and have the patient follow up with me in the cardiology office in 1 month. Diastolic dysfunction: Blood pressure control as above. Aortic valve sclerosis: per Site Damage Prevention Technician: Would benefit from statin therapy to prevent disease progression will likely start at outpatient follow up Snoring with apneic episodes as per account Possible sleep disordered breathing outpatient Sleep Study Past tobacco abuse Disposition d/c home ff up with PCP in 1 week per DC instructions ff up with Site Damage Prevention Technician in 1 month plan of care discussed with patient in detail and at length all questions were answered she is understanding, agreeable, comfortable with plan of care Total Time Total Time Spent Total Time Spent (In Minutes): > 30 minutes Discharge Plan Discharge Items Patient Disposition: Home - Self-Care Reason For Visit: CP Discharge Diagnosis: Atypical chest pain likely musculoskeletal etiology Activity: Resume your previous activity Activity Comment: Gradually as tolerated Lifting: Wait until after follow-up appointment Exercise/Sports: Wait until after follow-up appointment Driving/Machine Use: No driving if having significant chest pain Non-emergency contact: Primary Care Provider Call non-emergency contact if: you have any medication questions, your symptoms worsen, your pain is not controlled, your pain is worsening, your pain is unusual for you, your pain is concerning for you and you have a fever Follow-up/Referrals: Horacio Gray, [Physician] - Mayte Silverio, JOHNATHAN [Primary Care Provider] - Rob Attending Provider Instructions: Your new medication is losartan 25 mg 1 tablet daily-for blood pressure control. Call your primary care physician or return to the ER immediately if with recurrence or worsening symptoms. Stand-Alone Forms: [facility], Smoking Cessation Medications and DC Order Prescriptions: New losartan 25 mg Tablet 25 mg PO QAM Qty: 30 RF: 2 Continued citalopram [Celexa] 40 mg Tablet 40 mg PO QAM RF: 0 pramipexole [Mirapex] 0.125 mg tablet 0.125 mg PO HS RF: 0 Discharge Orders: Discharge Order (Routine); Ordered 07/02/20 Ordered By: Ace Stapleton/Other Patient Handouts: Controlling High Blood Pressure, Low-Salt Choices, Low Salt Diet Dc Admission Data Admit Date/Time: 07/02/20 00:07 Attending Provider: Ace Houser Admit Provider: Rober Reyna Primary Care Provider: Mayte Silverio Other Providers: Jose Manuel Ibarra ; Horacio Gray ; Ulices Frias ; Yanick Reeves ; Richard Ramos ; Galileo Olmstead ; Calixto Olguin ; Yasmin Newell ; Christina Brewer ; Cheng Ballard Other Interventions: Discharge Summary Assessment (RN) Last Done: 07/02/20 14:08
== END 2020-07-02 14:22 | disposition home or self-care (01) ==
LOC: ED 19:59 → 2S 19:59
DX: G25.81 Restless legs syndrome; Z87.891 Personal history of nicotine dependence; Z79.899 Other long term (current) drug therapy; I70.0 Atherosclerosis of aorta; R03.0 Elevated blood-pressure reading, without diagnosis of hypertension; R07.9 Chest pain, unspecified